=== PATIENT | female | born 1960 | race Hispanic/Latino ===

== ENCOUNTER 2021-06-29 06:42 | Day surgery (SDC) | payer BC, OTHER ==
[2021-06-29] MEDS ORDERED: SODIUM CHLORIDE 0.9% 1000 ML 1,000 ML IV SCH (07:00)
[2021-06-29] MEDS ORDERED: SODIUM CHLORIDE 0.9% 1000 ML 1,000 ML ONE (07:02)
[2021-06-29 07:24] LABS: Basophils % (Auto) 0.4 % (0.0-1.8); Eosinophils # (Auto) 0.1 K/mm3 (0.0-0.4); Eosinophils % (Auto) 2.5 % (0.0-4.3); Hematocrit 44.6 % (30.3-42.9); Hemoglobin 14.7 gm/dl (10.1-14.3); Lymphocytes # (Auto) 0.9 K/mm3 (1.2-5.4); Lymphocytes % (Auto) 24.3 % (13.4-35.0); Mean Corpuscular HGB Conc 33 % (30-34); Mean Corpuscular Volume 88 fl (79-97); Monocytes # (Auto) 0.3 K/mm3 (0.0-0.8); Monocytes % (Auto) 9.8 % (0.0-7.3); Platelet Count 150 K/mm3 (140-440); Red Blood Count 5.08 M/mm3 (3.65-5.03); Red Cell Distribution Width 14.5 % (13.2-15.2)
[2021-06-29 07:34] LABS: INR 1.46 (0.87-1.13)
[2021-06-29 07:35] LABS: Partial Thromboplastin Time 32.2 Sec. (24.2-36.6)
[2021-06-29 07:38] LABS: Blood Urea Nitrogen 12 mg/dL (7-17); Calcium 10.8 mg/dL (8.4-10.2); Hemolysis Index 3
[2021-06-29 08:01] LABS: BUN/Creatinine Ratio 24
--- NOTE | 2021-06-29 08:42 | Anesthesia Consultation ---
Anesthesia Consult and Med Hx Date of service: 06/29/21 - Airway Anesthetic Teeth Evaluation: Good ROM Head & Neck: Adequate Mental/Hyoid Distance: Adequate Mallampati Class: Class II Intubation Access Assessment: Good - Pulmonary Exam CTA: Yes - Cardiac Exam Cardiac Exam: RRR - Pre-Operative Health Status ASA Pre-Surgery Classification: ASA2 Proposed Anesthetic Plan: General - Cardiovascular System Hx Hypertension: Yes - Central Nervous System Hx Psychiatric Problems: No - Endocrine Hx Hypothyroidism: Yes - Other Systems Hx Cancer: No
--- NOTE | 2021-06-29 08:42 | Anesthesia Day of Surgery ---
Anesthesia Day of Surgery - Day of Surgery Patient Examined: Yes Patient H&P Reviewed: Yes Patient is NPO: Yes
[2021-06-29 09:50] VITALS: BP 133/73
--- NOTE | 2021-06-29 10:12 | Post Anesthesia Evaluation ---
- Post Anesthesia Evaluation Patient Participated: Yes Airway Patent: Yes Stable Respiratory Function: Yes Nausea/Vomiting: No Temp > 96.8F: Yes Pain Manageable: Yes Adequeate Hydration: Yes Anesthesia Complications: No Block Receding Appropriately: Not Applicable Patient on Ventilator: No
[2021-06-29] MEDS ORDERED: propofoL 200 MG/20 ML VIAL IV ONE (11:24)
--- NOTE | 2021-07-02 19:45 | Electrocardiograph Report ---
[facility] Test Date: 2021-06-29 Test Time: 08:52:06 Pat Name: FADUMO SMART Department: Room: Gender: F Medical Insurance Claims Processor: VENUS : 1960 Requested By: PIPO CASTELLANOS Order Number: [id number] Reading MD: Mckenna Melendez Measurements Intervals [place] Rate: 64 P: [place]: QRS: 22 QRSD: 93 T: -6 QT: 417 QTc: 431 Interpretive Statements Atrial fibrillation Compared to ECG 06/29/2021 08:09:28 Ventricular premature complex(es) no longer present Electronically Signed On 07-02-2021 19:45:14 EDT by Mckenna Melendez
--- NOTE | 2021-07-02 19:45 | Electrocardiograph Report ---
[facility] Test Date: 2021-06-29 Test Time: 08:09:28 Pat Name: FADUMO SMART Department: Room: Gender: F Training Administrator: VENUS : 1960 Requested By: PIPO CASTELLANOS Order Number: [id number] Reading MD: Mckenna Melendez Measurements Intervals [place] Rate: 67 P: [place]: QRS: 27 QRSD: 83 T: 5 QT: 396 QTc: 419 Interpretive Statements Atrial fibrillation Ventricular premature complex No previous ECG available for comparison Electronically Signed On 07-02-2021 19:44:30 EDT by Mckenna Melendez
--- NOTE | 2021-07-03 14:10 | Cardiac Catherization Report ---
DATE OF PROCEDURE: 06/29/2021 ELECTIVE ELECTRICAL CARDIOVERSION REFERRING PHYSICIAN: London Eaton MD INDICATION FOR ADMISSION: The patient is a very pleasant 60-year-old female found to be in AFib, asymptomatic, preserved LV function, started on anticoagulation, referred for elective cardioversion. It is confirmed that she has been taking her systemic anticoagulation uninterrupted for greater than 2 months, referred for elective cardioversion. At this point, risks, benefits and alternatives discussed prior to obtaining informed consent. DESCRIPTION OF PROCEDURE: The patient was brought to the cardioversion suite in a postabsorptive state, at bedside. Anesthesia is present throughout as well as RN and technical director. Once adequate sedation is achieved, we used 120 biphasic joules of shock x1. The patient reverted to sinus rhythm for about 5-6 minutes. Thereafter, she reverted back to atrial fibrillation. There were no immediate complications. The patient tolerated the procedure well. CONCLUSIONS: Successful elective cardioversion of atrial fibrillation to sinus rhythm; however, the patient reverted just to atrial fibrillation after 5-6 minutes. The patient is clinically stable. Continue current medications. We will consider starting antiarrhythmic and repeating same procedure. My plan of care was discussed at length with the patient and her . All questions were addressed. TID: [id number] RECEIPT: [id number] ALBERTO/DAVID/FRANCIA
== END 2021-06-29 10:25 | disposition home or self-care (01) ==
LOC: CATHLABREC 06:42
PROVIDERS: ATTEND Internal Medicine
DX: I48.91 Unspecified atrial fibrillation (principal); I10 Essential (primary) hypertension; E03.9 Hypothyroidism, unspecified; E66.9 Obesity, unspecified; Z88.5 Allergy status to narcotic agent; Z88.8 Allergy status to other drugs, medicaments and biological substances; Z79.899 Other long term (current) drug therapy; Z87.891 Personal history of nicotine dependence; Z90.49 Acquired absence of other specified parts of digestive tract; Z98.890 Other specified postprocedural states; Z20.822 Contact with and (suspected) exposure to COVID-19; Z68.41 Body mass index [BMI] 40.0-44.9, adult
CPT/HCPCS: 36415; 80048; 85025; 85610; 85730; 92960; 93005; J2704; J7030; U0003; J7120; Q0162